=== PATIENT | male | born 1965 | race Two or more races ===

== ENCOUNTER 2018-12-20 22:03 | Emergency (ER) | payer MEDICARE, OTHER ==
[~2018-12-20] VITALS: Ht 165.1 cm; Wt 80.3 kg
[~2018-12-20 22:03] MED LIST: ALPRAZOLAM1 MG ORAL; ASPIRIN81 M3 PO; AZITHROMYCIN250 MG ORAL; BENTYL10 MG ORAL; CIPRO500 MG/5 M PO; CLORAZEPATE DI7.5 MG PO; CYCLOBENZAPRINE10 MG ORAL; KEFLEX500 MG ORAL; KLONOPIN1 MG ORAL; LEVAQUIN750 MG ORAL; LISINOPRIL10 MG ORAL; MACROBID100 MG ORAL; MEDROL DOSEPAK4 MG ORAL; NITROFURANTOIN100 M2 ORAL; NORCO 10-325 T1 EACH ORAL; NORCO 10-325 T1 EACH PO; NORCO 10/3251 EA ORAL; NORCO 5-325 TA1 EACH ORAL; OMEPRAZOLE40 M1 ORAL; ONDANSETRON ODT4 MG ORAL; PAMELOR25 MG ORAL; PAXIL CR12.5 MG ORAL; PROMETHAZINE-D118 ML ORAL; ROBAXIN-750750 MG PO; SIMVASTATIN40 MG ORAL; TESTOSTERO200 MG/1 M IM; TYLENOL EXTRA500 MG ORAL; ZANTAC150 MG ORAL
[2018-12-20] MEDS ORDERED: LEVAQUIN500 MG ORAL (22:30)
[2018-12-20] MEDS ORDERED: cefTRIAXone 1 GM in NS 55 ML IVPB ONE (22:30)
--- NOTE | 2018-12-20 22:31 | Emergency Room Report ---
History of Present Illness General Chief Complaint: To Be Triaged Source: Patient Present Illness HPI This is a 53-year-old male who is paraplegic from the waist down. He has to self catheterize himself. He presents with chief complaint of dysuria. He thinks that he has a tract infection. He had this in the past. He takes Macrobid at night daily. He said is not helping. Said he cannot take Bactrim because of resistant profile. Usually takes Levaquin or Rocephin. Has some mild left flank tenderness. No nausea no vomiting. No fever chills. Similar symptom in the past. He said this been ongoing for about a month. Allergies: Coded Allergies: No Known Allergies (Verified , 07/21/11) Patient History Past Medical History: see triage record, old chart reviewed Past Surgical History: other Pertinent Family History: none Social History: Denies: smoking Immunizations: other Reviewed Nursing Documentation: PMH: Agreed; PSxH: Agreed Nursing Documentation-PMH Hx Hypertension: Yes Hx Cancer: No Hx Gastrointestinal Problems: Yes Hx Neurological Problems: Yes - PARAPLEGIA Hx Paralysis: Yes - B/L LOWER EXTREMITIES Hx Spinal Cord Injury: Yes - T9-T10 Hx Neurologic Surgery: Yes Review of Systems Eye: Denies: eye pain, blurred vision ENT: Denies: ear pain, nose congestion, throat swelling Respiratory: Denies: cough, shortness of breath Cardiovascular: Denies: chest pain, palpitations Gastrointestinal: Denies: abdominal pain, diarrhea, nausea, vomiting Genitourinary: Reports: dysuria Musculoskeletal: Denies: back pain, joint pain Skin: Denies: rash Neurological: Denies: headache, numbness Endocrine: Denies: increased thirst, increased urine Hematologic/Lymphatic: Denies: easy bruising All Other Systems: negative except mentioned in HPI Physical Exam Vitals with high blood pressure Sp02 EP Interpretation: reviewed, normal General Appearance: well appearing, no apparent distress, alert Head: normocephalic, atraumatic Eyes: bilateral eye PERRL, bilateral eye EOMI ENT: hearing grossly normal, normal pharynx Neck: full range of motion, supple, no meningismus Respiratory: chest non-tender, lungs clear, normal breath sounds Cardiovascular #1: regular rate, rhythm, no murmur Gastrointestinal: normal bowel sounds, non tender, no mass, no organomegaly, no bruit, non-distended Musculoskeletal: back normal Neurologic: alert, oriented x3 Psychiatric: mood/affect normal Medical Decision Making Diagnostic Impression: Primary Impression: UTI (urinary tract infection) Qualified Codes: N30.00 - Acute cystitis without hematuria ER Course Patient with dysuria. He states symptoms consistent with his previous UTI. Urine culture sent. He grew out E. coli in the past. We will put him on Levaquin after dose of Rocephin here. Culture sent. Any sepsis, pyelonephritis or systemic disease. Status: improved Disposition: HOME, SELF-CARE Condition: Stable Scripts Levofloxacin* (LEVAQUIN*) 500 Mg Tablet 500 MG ORAL DAILY, #7 TAB Prov: Cb Taylor MD 12/20/18 Additional Instructions: Follow-up with your doctor in 7 days. Urine culture sent but wont be back for 3 to 4 days. Return if symptoms worsen. Cb Taylor MD Dec 20, 2018 22:31
[2018-12-20 22:35] VITALS: BP 177/103
[2018-12-20 23:30] VITALS: BP 177/103
[2018-12-20] MEDS ORDERED: HYDROcodone/Acetamin 5/325 tab ORAL ONE (23:30)
--- NOTE | 2018-12-20 23:30 | NUR ---
ER DISCHARGE NOTE: Patient is cleared to be discharged per ERMD, pt is aox4, on room air, with stable vital signs. pt was given dc and prescription instructions, pt was able to verbalize understanding, pt id band and iv site removed without complications. pt is able to ambulate with steady gait. pt took all belongings.
--- NOTE | 2018-12-20 23:46 | NUR ---
ED Nurse Note: Patient stated "I think i have an UTI" Pt has been on multiple antibiotics but states he is resistant. States he is taking macrobid but not effective. AAO x4, VSS at this time.
== END 2018-12-20 23:30 | disposition home or self-care (01) ==
LOC: EMR 22:30
DX: N30.00 Acute cystitis without hematuria (principal); I10 Essential (primary) hypertension; G82.20 Paraplegia, unspecified
CPT/HCPCS: 87086; 96365; 99284; J0696

== ENCOUNTER 2019-05-14 21:04 | Emergency (ER) | payer MEDICARE ==
[~2019-05-14] VITALS: Ht 167.6 cm; Wt 83.9 kg
[~2019-05-14 21:04] MED LIST changes: +LEVAQUIN500 MG ORAL
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
[2019-05-14 21:46] VITALS: BP 163/99
--- NOTE | 2019-05-14 21:46 | NUR ---
ER Nurse Note: Pt arrived by wheelchair c/o lower back pain, painful urination and diarhea for three months. Pt stated he self caths and has been feeling discomfort for months. Pt stated he has not been moving like he was used to and caused more pressure on is lower body. Pt stated 9/10 pain on lower back. Pt VSS, no signs of distress. Will continue to [facility].
[2019-05-14 21:50] LABS: BASOPHILS % (AUTO) 1.2 % (0.0-2.0); EOSINOPHILS % (AUTO) 1.2 % (0.0-3.0); HEMATOCRIT 50.7 % (42.0-52.0); HEMOGLOBIN 17.2 G/DL (14.2-18.0); LYMPHOCYTES % (AUTO) 24.4 % (20.0-45.0); MEAN CORPUSCULAR VOLUME 88 FL (80-99); MONOCYTES % (AUTO) 6.5 % (1.0-10.0); NEUTROPHILS % (AUTO) 66.6 % (45.0-75.0); PLATELET COUNT 304 K/UL (150-450); RED BLOOD COUNT 5.76 M/UL (4.70-6.10); RED CELL DISTRIBUTION WIDTH 18.4 % (11.6-14.8); WHITE BLOOD COUNT 9.8 K/UL (4.8-10.8)
[2019-05-14 22:01] LABS: ANION GAP 15 mmol/L (5-15); BLOOD UREA NITROGEN 17 mg/dL (7-18); CARBON DIOXIDE 24 MMOL/L (21-32); CHLORIDE 104 MMOL/L (98-107); CREATININE 0.6 MG/DL (0.55-1.30); POTASSIUM 3.9 MMOL/L (3.5-5.1); SODIUM 143 MMOL/L (136-145)
[2019-05-14 22:05] LABS: ALANINE AMINOTRANSFERASE 64 U/L (12-78); ALBUMIN 4.1 G/DL (3.4-5.0); ALBUMIN/GLOBULIN RATIO 1.1 (1.0-2.7); ALKALINE PHOSPHATASE 75 U/L (46-116); ASPARTATE AMINO TRANSFERASE 33 U/L (15-37); BILIRUBIN,TOTAL 0.5 MG/DL (0.2-1.0)
--- NOTE | 2019-05-14 22:10 | NUR ---
ER Nurse Note: All orders completed per ERMD orders. Pt provided urine via self cath. IV established on RT AC, patent and infusing fluids. CT taken; awaiting results. All safety measures met; will continue to [facility].
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
[2019-05-14 22:29] LABS: BILIRUBIN, URINE NEGATIVE (NEGATIVE); COLOR,URINE AMBER; GLUCOSE, URINE (UA) NEGATIVE (NEGATIVE); KETONES,URINE NEGATIVE (NEGATIVE); LEUKOCYTE ESTERASE ,URINE 1+ (NEGATIVE); NITRITE,URINE POSITIVE (NEGATIVE); PH,URINE 5 (4.5-8.0); PROTEIN,URINE 1+ (NEGATIVE); UROBILINOGEN,URINE 1 MG/DL (0.0-1.0)
[2019-05-14 22:31] LABS: APPEARANCE,URINE SLIGHTLY CLOUDY
[2019-05-14] MEDS ORDERED: LOMOTIL TABLET1 EACH ORAL (22:44)
[2019-05-14] MEDS ORDERED: IBUPROFEN600 MG ORAL (22:44)
[2019-05-14] MEDS ORDERED: LEVAQUIN500 MG ORAL (22:44)
[2019-05-14] MEDS ORDERED: Ketorolac 30mg Inj IV ONE (22:45)
[2019-05-14] MEDS ORDERED: Morphine Sulfate 4mg/ml Inj (IV USE ONLY) IVP ONE (22:45)
[2019-05-14] MEDS ORDERED: cefTRIAXone 1 GM in NS 55 ML IVPB ONE (22:45)
[2019-05-14 23:20] VITALS: BP 146/86
--- NOTE | 2019-05-14 23:20 | NUR ---
ER DISCHARGE NOTE: All orders completed per ERMD orders. Patient is cleared to be discharged per ERMD. Pt is aox4, on room air, with stable vital signs. Pt was given dc and prescription instructions. Pt was able to verbalize understanding. Instructed pt to follow up with primary care physican within one week for follow up care. Pt ID band and IV site removed without complications. Pt left with wheelchair and took all belongings.
== END 2019-05-14 23:20 | disposition home or self-care (01) ==
LOC: EMR 22:05
DX: N30.00 Acute cystitis without hematuria (principal); R10.84 Generalized abdominal pain; M54.5 Low back pain; R19.7 Diarrhea, unspecified; I10 Essential (primary) hypertension; G82.20 Paraplegia, unspecified
CPT/HCPCS: 36415; 74176; 80053; 81003; 83690; 85025; 87086; 87181; 96361; 96365; 96375; 99284; J0696; J2270; J7030

== ENCOUNTER 2019-08-15 21:26 | Emergency (ER) | payer MEDICARE ==
[~2019-08-15] VITALS: Ht 165.1 cm; Wt 88.5 kg
[~2019-08-15 21:26] MED LIST changes: +IBUPROFEN600 MG ORAL; +LOMOTIL TABLET1 EACH ORAL
[2019-08-15] MEDS ORDERED: LEXAPRO10 MG ORAL (22:06)
[2019-08-15] MEDS ORDERED: NITROFURANTOIN100 M2 ORAL (22:06)
[2019-08-15] MEDS ORDERED: ALPRAZOLAM1 MG ORAL (22:06)
[2019-08-15] MEDS ORDERED: ATENOLOL25 MG ORAL (22:06)
[2019-08-15 22:19] VITALS: BP 153/90
[2019-08-15] MEDS ORDERED: Omnipaque-300 100ml vial INJ PRN (22:45)
[2019-08-15] MEDS ORDERED: Dicyclomine HCl 10mg/5ml oral soln ORAL ONE (22:45)
--- NOTE | 2019-08-15 22:45 | Emergency Room Report ---
History of Present Illness General Chief Complaint: Abdominal Pain Source: Patient Present Illness HPI Patient is a 53-year-old male presents after increased right-sided abdominal pain. Patient reports having increased diarrhea with dark stool for the past 3 weeks. Denies any alcohol use. Reports taking NSAIDs for pain regularly. States that he had prior history of T9-T10 paraplegia and has diminished sensation to the left side of his abdomen. Reports having increased tarry stools. Increased abdominal distention and bloating. Does not denies any prior appendiceal surgery. Patient states he intermittently self caths and has currently had a urinary tract infection. He is currently taking Macrobid and normally takes Macrobid for urinary suppression. Allergies: Coded Allergies: No Known Allergies (Verified , 07/21/11) COVID-19 Screening Contact w/high risk pt: No Recent Travel to affected area: No Experienced COVID-19 symptoms?: Yes COVID-19 symptoms experienced: Cough COVID-19 Testing performed AMBULANCE PARAMEDIC: No Patient History Past Medical History: see triage record Reviewed Nursing Documentation: PMH: Agreed; PSxH: Agreed Nursing Documentation-PMH Hx Hypertension: Yes Hx Cancer: No Hx Gastrointestinal Problems: Yes Hx Neurological Problems: Yes - PARAPLEGIA Hx Paralysis: Yes - B/L LOWER EXTREMITIES Hx Spinal Cord Injury: Yes - T9-T10 Hx Neurologic Surgery: Yes Review of Systems All Other Systems: negative except mentioned in HPI Physical Exam Vital Signs Date Time Temp Pulse Resp B/P (MAP) Pulse Ox O2 Delivery O2 Flow Rate FiO2 08/15/19 21:34 98.8 127 20 153/90 (111) 97 Room Air Sp02 EP Interpretation: reviewed, normal General Appearance: normal inspection, well appearing, no apparent distress, alert, GCS 15 Head: atraumatic ENT: normal ENT inspection, hearing grossly normal, normal voice Neck: normal inspection, full range of motion, supple, no bony tend Respiratory: normal inspection, lungs clear, normal breath sounds, no respiratory distress, no retraction, no wheezing Cardiovascular #1: regular rate, rhythm, no edema Gastrointestinal: normal inspection, normal bowel sounds, non tender, soft, no guarding, no hernia Genitourinary: no CVA tenderness Musculoskeletal: normal inspection, back normal Neurologic: alert, responsive, speech normal, other - bilateral lower extremity weakness Psychiatric: normal inspection, judgement/insight normal, mood/affect normal Skin: no rash Medical Decision Making Diagnostic Impression: Primary Impression: Abdominal pain ER Course Patient presented for abdominal pain. Differential diagnoses included ischemic bowel, appendicitis, perforated viscus, abdominal aortic aneurysm, inferior myocardial infarction, viral gastroenteritis among others.Because patient's complexity imaging studies, and laboratory testing ordered. Laboratory testing showed normal white blood count,. Electrolytes normal Lipase was normal White blood count was CT of the abdomen pelvis showed: CT imaging showed some evidence of fecal impaction. Does not appear to have any evidence of bowel obstruction. Urinalysis did not show any evidence of definite urinary infection patient is currently taking Macrobid. He appears to be stable for close outpatient follow- up. He was advised to follow-up with his primary care physician for GI referral. He was advised to return if worse. Patient appears to be stable for close outpatient follow up. Labs Test 08/15/19 22:14 08/15/19 22:55 White Blood Count 7.6 K/UL (4.8-10.8) Red Blood Count 5.43 M/UL (4.70-6.10) Hemoglobin 16.8 G/DL (14.2-18.0) Hematocrit 49.2 % (42.0-52.0) Mean Corpuscular Volume 91 FL (80-99) Mean Corpuscular Hemoglobin 31.0 PG (27.0-31.0) Mean Corpuscular Hemoglobin Concent 34.1 G/DL (32.0-36.0) Red Cell Distribution Width 11.9 % (11.6-14.8) Platelet Count 324 K/UL (150-450) Mean Platelet Volume 6.6 FL (6.5-10.1) Neutrophils (%) (Auto) 55.4 % (45.0-75.0) Lymphocytes (%) (Auto) 34.3 % (20.0-45.0) Monocytes (%) (Auto) 8.1 % (1.0-10.0) Eosinophils (%) (Auto) 1.3 % (0.0-3.0) Basophils (%) (Auto) 0.9 % (0.0-2.0) Sodium Level 140 MMOL/L (136-145) Potassium Level 3.7 MMOL/L (3.5-5.1) Chloride Level 104 MMOL/L (98-107) Carbon Dioxide Level 28 MMOL/L (21-32) Anion Gap 9 mmol/L (5-15) Blood Urea Nitrogen 10 mg/dL (7-18) Creatinine 0.7 MG/DL (0.55-1.30) Estimat Glomerular Filtration Rate > 60 mL/min (>60) Glucose Level 110 MG/DL (74-106) Calcium Level 8.7 MG/DL (8.5-10.1) Total Bilirubin 0.3 MG/DL (0.2-1.0) Aspartate Amino Transf (AST/SGOT) 19 U/L (15-37) Alanine Aminotransferase (ALT/SGPT) 38 U/L (12-78) Alkaline Phosphatase 71 U/L (46-116) Total Protein 7.9 G/DL (6.4-8.2) Albumin 3.9 G/DL (3.4-5.0) Globulin 4.0 g/dL Albumin/Globulin Ratio 1.0 (1.0-2.7) Lipase 121 U/L (73-393) Urine Color Pale yellow Urine Appearance Clear Urine pH 7 (4.5-8.0) Urine Specific [place] 1.010 (1.005-1.035) Urine Protein Negative (NEGATIVE) Urine Glucose (UA) Negative (NEGATIVE) Urine Ketones Negative (NEGATIVE) Urine Blood 1+ (NEGATIVE) Urine Nitrite Negative (NEGATIVE) Urine Bilirubin Negative (NEGATIVE) Urine Urobilinogen Normal MG/DL (0.0-1.0) Urine Leukocyte Esterase 1+ (NEGATIVE) Urine RBC 0-2 /HPF (0 - 0) Urine WBC 0-2 /HPF (0 - 0) Urine Squamous Epithelial Cells None /LPF (NONE/OCC) Urine Bacteria None /HPF (NONE) Last Vital Signs Date Time Temp Pulse Resp B/P (MAP) Pulse Ox O2 Delivery O2 Flow Rate FiO2 08/15/19 22:19 127 20 Room Air 08/15/19 22:19 98.8 153/90 97 Status: improved Disposition: HOME, SELF-CARE Condition: Stable Scripts Lactulose (LACTULOSE*) 20 Gm/30 Ml Solution 30 ML ORAL THREE TIMES A DAY for constipation, #60 ML 0 Refills Prov: Jaylon Salamanca MD 08/16/19 [facility]: [facility],REFERRING (PCP) Jaylon Salamanca MD August 15, 2019 22:45
[2019-08-15 23:07] LABS: BASOPHILS % (AUTO) 0.9 % (0.0-2.0); EOSINOPHILS % (AUTO) 1.3 % (0.0-3.0); HEMATOCRIT 49.2 % (42.0-52.0); HEMOGLOBIN 16.8 G/DL (14.2-18.0); LYMPHOCYTES % (AUTO) 34.3 % (20.0-45.0); MEAN CORPUSCULAR VOLUME 91 FL (80-99); MONOCYTES % (AUTO) 8.1 % (1.0-10.0); NEUTROPHILS % (AUTO) 55.4 % (45.0-75.0); PLATELET COUNT 324 K/UL (150-450); RED BLOOD COUNT 5.43 M/UL (4.70-6.10); RED CELL DISTRIBUTION WIDTH 11.9 % (11.6-14.8); WHITE BLOOD COUNT 7.6 K/UL (4.8-10.8)
[2019-08-15 23:10] LABS: APPEARANCE,URINE CLEAR; BILIRUBIN, URINE NEGATIVE (NEGATIVE); COLOR,URINE PALE YELLOW; GLUCOSE, URINE (UA) NEGATIVE (NEGATIVE); KETONES,URINE NEGATIVE (NEGATIVE); LEUKOCYTE ESTERASE ,URINE 1+ (NEGATIVE); NITRITE,URINE NEGATIVE (NEGATIVE); PH,URINE 7 (4.5-8.0); PROTEIN,URINE NEGATIVE (NEGATIVE); UROBILINOGEN,URINE NORMAL MG/DL (0.0-1.0)
[2019-08-15 23:20] LABS: ANION GAP 9 mmol/L (5-15); BLOOD UREA NITROGEN 10 mg/dL (7-18); CALCIUM 8.7 MG/DL (8.5-10.1); CARBON DIOXIDE 28 MMOL/L (21-32); CHLORIDE 104 MMOL/L (98-107); CREATININE 0.7 MG/DL (0.55-1.30); POTASSIUM 3.7 MMOL/L (3.5-5.1); SODIUM 140 MMOL/L (136-145)
[2019-08-15 23:25] LABS: ALANINE AMINOTRANSFERASE 38 U/L (12-78); ALBUMIN 3.9 G/DL (3.4-5.0); ALKALINE PHOSPHATASE 71 U/L (46-116); ASPARTATE AMINO TRANSFERASE 19 U/L (15-37); BILIRUBIN,TOTAL 0.3 MG/DL (0.2-1.0)
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
[2019-08-16] MEDS ORDERED: Ketorolac 30mg Inj IV ONE (01:00)
[2019-08-16] MEDS ORDERED: LACTULOSE20 GM/301 ORAL (01:00)
[2019-08-16] MEDS ORDERED: OMEPRAZOLE20 M2 ORAL (01:03)
[2019-08-16 01:15] VITALS: BP 153/90
[2019-08-16] MEDS ORDERED: Morphine Sulfate 4mg/ml Inj (IV USE ONLY) IVP ONE (01:15)
== END 2019-08-16 01:15 | disposition home or self-care (01) ==
LOC: EMR 21:56
DX: R10.9 Unspecified abdominal pain (principal); R19.7 Diarrhea, unspecified; R05 Cough; I10 Essential (primary) hypertension; G82.20 Paraplegia, unspecified; R14.0 Abdominal distension (gaseous); K59.00 Constipation, unspecified; M25.452 Effusion, left hip; M25.451 Effusion, right hip
CPT/HCPCS: 36415; 74177; 80053; 81003; 83690; 85025; 96374; 96375; 99284; J1885; J2270; J2405; Q9967; S0028

== ENCOUNTER 2019-09-11 21:54 | Emergency (ER) | payer MEDICARE ==
[~2019-09-11] VITALS: Ht 167.6 cm; Wt 88.5 kg
[~2019-09-11 21:54] MED LIST changes: +ATENOLOL25 MG ORAL; +LACTULOSE20 GM/301 ORAL; +LEXAPRO10 MG ORAL; +OMEPRAZOLE20 M2 ORAL
[2019-09-11 22:20] VITALS: BP 149/72
--- NOTE | 2019-09-11 22:20 | NUR ---
ED Nurse Note: Wheelchair to ED c/o severe lower back pain / x 5 days. Patient reports frequent reoccurrance. Patient able to transfer self from wheelchair to bed without incident. Attached to monitor; Tachycardic 103's; ERMD aware. Patient provided urine sample. IV access established. Blood and urine collected; sent down to lab.
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
[2019-09-11] MEDS ORDERED: Ketorolac 30mg Inj IV ONE (22:30)
[2019-09-11] MEDS ORDERED: Morphine Sulfate 4mg/ml Inj (IV USE ONLY) IVP ONE (22:30)
[2019-09-11 22:35] LABS: BILIRUBIN, URINE NEGATIVE (NEGATIVE); COLOR,URINE YELLOW; GLUCOSE, URINE (UA) NEGATIVE (NEGATIVE); KETONES,URINE NEGATIVE (NEGATIVE); LEUKOCYTE ESTERASE ,URINE 1+ (NEGATIVE); NITRITE,URINE POSITIVE (NEGATIVE); PH,URINE 6 (4.5-8.0); PROTEIN,URINE NEGATIVE (NEGATIVE); UROBILINOGEN,URINE 1 MG/DL (0.0-1.0)
--- NOTE | 2019-09-11 22:35 | NUR ---
ED Nurse Note: Medicated patient as ordered; patient tolerated well. Patient remains in no acute distress.
[2019-09-11 22:40] LABS: APPEARANCE,URINE CLOUDY
[2019-09-11] MEDS ORDERED: LEVAQUIN500 MG ORAL (22:43)
[2019-09-11 22:50] LABS: BASOPHILS % (AUTO) 1.4 % (0.0-2.0); EOSINOPHILS % (AUTO) 0.4 % (0.0-3.0); HEMATOCRIT 54.2 % (42.0-52.0); HEMOGLOBIN 17.1 G/DL (14.2-18.0); LYMPHOCYTES % (AUTO) 30.2 % (20.0-45.0); MEAN CORPUSCULAR VOLUME 100 FL (80-99); MONOCYTES % (AUTO) 4.9 % (1.0-10.0); NEUTROPHILS % (AUTO) 63.1 % (45.0-75.0); PLATELET COUNT 344 K/UL (150-450); RED BLOOD COUNT 5.45 M/UL (4.70-6.10); RED CELL DISTRIBUTION WIDTH 13.4 % (11.6-14.8); WHITE BLOOD COUNT 8.9 K/UL (4.8-10.8)
[2019-09-12] MEDS ORDERED: Morphine Sulfate 4mg/ml Inj (IV USE ONLY) IVP ONE
[2019-09-12 00:07] VITALS: BP 149/72
== END 2019-09-12 00:05 | disposition home or self-care (01) ==
LOC: EMR 22:09
DX: M54.5 Low back pain (principal); G89.29 Other chronic pain; N30.00 Acute cystitis without hematuria; Z99.3 Dependence on wheelchair; I10 Essential (primary) hypertension; G82.20 Paraplegia, unspecified; G83.9 Paralytic syndrome, unspecified
CPT/HCPCS: 36415; 81003; 85025; 87086; 87181; 96361; 96374; 96375; 96376; 99284; J1885; J2270; J7030

== ENCOUNTER 2019-10-21 21:05 | Emergency (ER) | payer MEDICARE ==
[~2019-10-21] VITALS: Ht 167.6 cm; Wt 88.5 kg
[2019-10-21 21:30] VITALS: BP 130/77
[2019-10-21] MEDS ORDERED: Hydromorphone 0.5mg/0.5ml inj IVP ONE (21:30)
--- NOTE | 2019-10-21 21:30 | NUR ---
ED Nurse Note: IV access established. blood and urine collected; sent down to lab.
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
--- NOTE | 2019-10-21 21:45 | NUR ---
ED Nurse Note: pt down to imaging with radiology via gurney.
[2019-10-21 21:56] LABS: BASOPHILS % (AUTO) 1.1 % (0.0-2.0); EOSINOPHILS % (AUTO) 0.9 % (0.0-3.0); HEMATOCRIT 50.2 % (42.0-52.0); HEMOGLOBIN 16.4 G/DL (14.2-18.0); LYMPHOCYTES % (AUTO) 18.2 % (20.0-45.0); MEAN CORPUSCULAR VOLUME 96 FL (80-99); MONOCYTES % (AUTO) 8.8 % (1.0-10.0); PLATELET COUNT 313 K/UL (150-450); RED BLOOD COUNT 5.24 M/UL (4.70-6.10); RED CELL DISTRIBUTION WIDTH 13.5 % (11.6-14.8); WHITE BLOOD COUNT 10.1 K/UL (4.8-10.8)
[2019-10-21 21:58] LABS: APPEARANCE,URINE SLIGHTLY CLOUDY; BILIRUBIN, URINE NEGATIVE (NEGATIVE); GLUCOSE, URINE (UA) NEGATIVE (NEGATIVE); KETONES,URINE 1+ (NEGATIVE); LEUKOCYTE ESTERASE ,URINE NEGATIVE (NEGATIVE); NITRITE,URINE NEGATIVE (NEGATIVE); PH,URINE 7 (4.5-8.0); PROTEIN,URINE NEGATIVE (NEGATIVE); UROBILINOGEN,URINE 4 MG/DL (0.0-1.0)
[2019-10-21 22:00] LABS: COLOR,URINE YELLOW
[2019-10-21 22:05] LABS: ANION GAP 7 mmol/L (5-15); BLOOD UREA NITROGEN 11 mg/dL (7-18); CALCIUM 8.7 MG/DL (8.5-10.1); CARBON DIOXIDE 29 MMOL/L (21-32); CHLORIDE 101 MMOL/L (98-107); CREATININE 0.7 MG/DL (0.55-1.30); POTASSIUM 3.7 MMOL/L (3.5-5.1); SODIUM 137 MMOL/L (136-145)
[2019-10-21 22:16] LABS: ALANINE AMINOTRANSFERASE 35 U/L (12-78); ALBUMIN 3.9 G/DL (3.4-5.0); ALKALINE PHOSPHATASE 93 U/L (46-116); ASPARTATE AMINO TRANSFERASE 20 U/L (15-37); BILIRUBIN,TOTAL 0.4 MG/DL (0.2-1.0); CREATINE KINASE 172 U/L (26-308); PHOSPHORUS 1.7 MG/DL (2.5-4.9)
--- NOTE | 2019-10-21 22:25 | Diagnostic Imaging Report ---
EXAM: XR Left Tibia and Fibula, 2 Views CLINICAL HISTORY: FALL TECHNIQUE: Frontal and lateral views of the left tibia and fibula. COMPARISON: No relevant prior studies available. FINDINGS: Bones/joints: Spiral fracture distal tibia. Trace knee effusion. Soft tissues: Soft tissue swelling. IMPRESSION: Spiral fracture distal tibia.
--- NOTE | 2019-10-21 22:29 | Diagnostic Imaging Report ---
EXAM: XR Chest, 1 View CLINICAL HISTORY: FALL TECHNIQUE: Frontal view of the chest. COMPARISON: No relevant prior studies available. FINDINGS: Lungs: No consolidation. Pleural space: Unremarkable. No pneumothorax. Heart: Unremarkable. No cardiomegaly. Mediastinum: Unremarkable. Bones/joints: No acute fracture. IMPRESSION: No acute cardiopulmonary disease.
[2019-10-21] MEDS ORDERED: HYDROmorphone 1mg/ml Carpuject IVP ONE (22:30)
--- NOTE | 2019-10-21 22:30 | NUR ---
ED Nurse Note: pt back from imaging. reattached to [facility]. presents in no acute distress. medicated patient. ertech at bedside for splint application.
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
[2019-10-21] MEDS ORDERED: Omnipaque 350 100ml vial INJ PRN (23:00)
[2019-10-21] MEDS ORDERED: LORazepam Inj 2mg/ml 1ml IV ONE (23:00)
--- NOTE | 2019-10-22 00:04 | Diagnostic Imaging Report ---
EXAM: CT Angiography Chest With Intravenous Contrast CLINICAL HISTORY: CP TECHNIQUE: Axial computed tomographic angiography images of the chest with intravenous contrast. CTDI is 3 7.30 mGy and DLP is 1457.1 mGy-cm. One or more of the following dose reduction techniques were used: automated exposure control, adjustment of the mA and/or kV according to patient size, use of iterative reconstruction technique. MIP reconstructed images were created and reviewed. COMPARISON: 06/09/14 FINDINGS: Limitations: Timing of the IV contrast bolus. Pulmonary arteries: No central pulmonary embolus. Aorta: No acute findings. No thoracic aortic aneurysm. Lungs: Mild atelectasis or sc trace gas seen in the gallbladder. No suspicious pulmonary nodule. Pleural space: No significant abnormality. No significant effusion. No pneumothorax. Heart: No significant abnormality. No cardiomegaly. No significant pericardial effusion. Bones/joints: No acute osseous abnormality. Stable deformity of the T12 vertebral body. Soft tissues: No significant abnormality. Lymph nodes: No significant abnormality. No enlarged lymph nodes. Gallbladder and bile ducts: Similar atrophy of the left hepatic lobe and mild intrahepatic biliary dilatation. Again seen is pneumobilia. IMPRESSION: No acute CT findings in the visualized arteries of the chest.
[2019-10-22 00:10] VITALS: BP 110/68
[2019-10-22] MEDS ORDERED: HYDROCODON-ACE1 EA16 ORAL (00:19)
[2019-10-22 00:28] VITALS: BP 110/68
--- NOTE | 2019-10-22 00:28 | NUR ---
ER DISCHARGE NOTE: Patient is cleared to be discharged per ERMD, pt is aox4, on room air, with stable vital signs. pt was given dc and prescription instructions, pt was able to verbalize understanding, pt id band and iv site removed without complications. pt is able to self transfer to wheelchair without incident. left dept with all belongings.
== END 2019-10-22 00:29 | disposition home or self-care (01) ==
LOC: EMR 21:36
DX: S82.245A Nondisplaced spiral fracture of shaft of left tibia, initial encounter for closed fracture (principal); I10 Essential (primary) hypertension; R00.0 Tachycardia, unspecified; M54.5 Low back pain; G82.20 Paraplegia, unspecified; F41.9 Anxiety disorder, unspecified; M62.50 Muscle wasting and atrophy, not elsewhere classified, unspecified site; W05.0XXA Fall from non-moving wheelchair, initial encounter; Y92.9 Unspecified place or not applicable
CPT/HCPCS: 29515; 36415; 71045; 71275; 72131; 73590; 80053; 80307; 81003; 82550; 83605; 83735; 83880; 84100; 84484; 85025; 85610; 85730; 87040; 93005; 96361; 96374; 96375; 96376; 99284; J1170; Q9967

== ENCOUNTER 2019-10-23 21:47 | Emergency (ER) | payer MEDICARE ==
[~2019-10-23] VITALS: Ht 142.2 cm; Wt 86.2 kg
[~2019-10-23 21:47] MED LIST changes: +HYDROCODON-ACE1 EA16 ORAL
[2019-10-23 22:01] VITALS: BP 124/92
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
--- NOTE | 2019-10-23 22:15 | NUR ---
ED Nurse Note: ERMD at bedside
[2019-10-23] MEDS ORDERED: HYDROmorphone 1mg/ml Carpuject IM ONE (22:30)
[2019-10-23] MEDS ORDERED: Ketorolac 60mg Inj IM ONE (22:30)
--- NOTE | 2019-10-23 22:30 | NUR ---
ED Nurse Note: All medications administered, pt tolerated well no ss of distress noted. will continue to monitor.
--- NOTE | 2019-10-23 22:32 | Emergency Room Report ---
History of Present Illness General Chief Complaint: Pain Source: Patient Present Illness HPI Patient is a 54-year-old male presents for increased pain to his low back. Had recent fall from his wheelchair. Had recently been diagnosed with a spiral fracture to his left tibia. Had been placed in a splint. Had a chronically self caths due to paraplegia. Denies any fever. Had not been vomiting. Is complete paraplegic and denies any new weakness. Denies any abdominal discomfort.Patient had recent imaging studies which showed compression fracture T12 which is stable. There is no recent new trauma. He reports taking Ezel for pain. 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 Patient History Past Medical History: see triage record Past Surgical History: other - Surgeries for trauma Reviewed Nursing Documentation: PMH: Agreed; PSxH: Agreed Nursing Documentation-PMH Past Medical History: No History, Except For Hx Hypertension: Yes Hx Cancer: No Hx Gastrointestinal Problems: Yes Hx Neurological Problems: Yes - PARAPLEGIA Hx Paralysis: Yes - B/L LOWER EXTREMITIES Hx Spinal Cord Injury: Yes - 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 Hx Neurologic Surgery: Yes Review of Systems All Other Systems: negative except mentioned in HPI Physical Exam Sp02 EP Interpretation: reviewed, normal General Appearance: normal inspection, well appearing, no apparent distress, alert, GCS 15, obese Head: atraumatic ENT: normal ENT inspection, hearing grossly normal, normal voice Neck: normal inspection, full range of motion, supple, no bony tend Respiratory: normal inspection, lungs clear, normal breath sounds, no respiratory distress, no retraction, no wheezing Cardiovascular #1: regular rate, rhythm, no edema Gastrointestinal: normal inspection, normal bowel sounds, non tender, soft, no guarding, no hernia Genitourinary: no CVA tenderness Musculoskeletal: normal inspection, back normal, other - Left lower extremity in splint brisk cap refill, minimal swelling soft compartments Neurologic: alert, responsive, speech normal, normal inspection Psychiatric: normal inspection, judgement/insight normal, mood/affect normal Skin: no rash Medical Decision Making Diagnostic Impression: Primary Impression: chronic back pain Additional Impressions: Tibial fracture Back pain ER Course Patient presented for increased back pain. Differential diagnosis include was not limited to urinary tract infection, chronic back pain exacerbation, among others. Patient has a benign exam and does not appear to require any imaging or laboratory testing at this time. Urinalysis will be sent due to patient's prior history of self cathing. Patient is currently taking antibiotics for urinary suppression. Does not appear to have any evidence of sepsis. Patient was given pain medications due to fracture which was previously diagnosed on last visit. Patient appears to be stable for outpatient management. He was offered further work-up but denies any other complaints. Urinalysis showed no evidence of urinary tract infection. Patient will follow-up with his primary care physician. He is agreeable with discharge plan. This medical record is generated with [employer] band aid machine operator software. There may be some band aid machine operator discrepancies related to use of this software Labs Test 10/23/19 22:44 Urine Color Pale yellow Urine Appearance Clear Urine pH 8 (4.5-8.0) Urine Specific [place] 1.010 (1.005-1.035) Urine Protein Negative (NEGATIVE) Urine Glucose (UA) Negative (NEGATIVE) Urine Ketones Negative (NEGATIVE) Urine Blood Negative (NEGATIVE) Urine Nitrite Negative (NEGATIVE) Urine Bilirubin Negative (NEGATIVE) Urine Urobilinogen 4 MG/DL (0.0-1.0) Urine Leukocyte Esterase Negative (NEGATIVE) Status: improved Disposition: HOME, SELF-CARE Condition: Stable Referrals: [facility],REFERRING (PCP) Jaylon Salamanca MD Oct 23, 2019 22:32
[2019-10-23 23:13] LABS: APPEARANCE,URINE CLEAR; BILIRUBIN, URINE NEGATIVE (NEGATIVE); COLOR,URINE PALE YELLOW; GLUCOSE, URINE (UA) NEGATIVE (NEGATIVE); KETONES,URINE NEGATIVE (NEGATIVE); LEUKOCYTE ESTERASE ,URINE NEGATIVE (NEGATIVE); NITRITE,URINE NEGATIVE (NEGATIVE); PH,URINE 8 (4.5-8.0); PROTEIN,URINE NEGATIVE (NEGATIVE); UROBILINOGEN,URINE 4 MG/DL (0.0-1.0)
[2019-10-23 23:31] VITALS: BP 138/98
[2019-10-23 23:34] VITALS: BP 138/98
--- NOTE | 2019-10-23 23:34 | NUR ---
ER DISCHARGE NOTE: Patient is cleared to be discharged home per ERMD, pt is aox4, 99% on room air, with stable vital signs. pt was given dc and prescription instructions, pt was able to verbalize understanding, pt id band removed. pt is able to utilize wheelchair without assistance. pt took all belongings. pt verbalized understanding of all discharge instructions.
== END 2019-10-23 23:30 | disposition home or self-care (01) ==
LOC: EMR 22:14
DX: M54.5 Low back pain (principal); G89.29 Other chronic pain; S82.242A Displaced spiral fracture of shaft of left tibia, initial encounter for closed fracture; G82.21 Paraplegia, complete; W05.0XXA Fall from non-moving wheelchair, initial encounter; Y92.9 Unspecified place or not applicable; I10 Essential (primary) hypertension
CPT/HCPCS: 81003; 96372; 99283; J1170

== ENCOUNTER 2019-12-10 03:02 | Emergency (ER) | payer MEDICARE ==
[~2019-12-10] VITALS: Ht 167.6 cm; Wt 88.5 kg
[2019-12-10 03:30] VITALS: BP 157/109
[2019-12-10] MEDS ORDERED: Cephalexin 500mg cap ORAL ONE (03:45)
[2019-12-10] MEDS ORDERED: Morphine Sulfate 2mg/ml Inj(IV/IM USE ONLY) IM ONE (03:45)
--- NOTE | 2019-12-10 03:53 | Emergency Room Report ---
History of Present Illness General Chief Complaint: Male Urogenital Problems Source: Patient Present Illness HPI Patient is a 54-year-old male presents for increased low back pain. Patient also has prior history of paraplegia and spinal cord injury. Patient reports having increased difficulty with flank pain. Denies any vomiting or diarrhea. Reports having prior history of orthopedic surgery for fracture to his left leg. States that he missed an orthopedic appointment earlier in the day. Denies any fever. Prior history of recurrent urinary tract infections due to self catheterizations. Reports having some burning sensation with urination. He normally is on Macrobid for suppression but had run out of medications. 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 Hx Neurologic Surgery: Yes Review of Systems All Other Systems: negative except mentioned in HPI Physical Exam Vital Signs Date Time Temp Pulse Resp B/P (MAP) Pulse Ox O2 Delivery O2 Flow Rate FiO2 12/10/19 03:20 98.6 123 16 157/109 (125) 98 Room Air Sp02 EP Interpretation: reviewed, normal General Appearance: normal inspection, well appearing, no apparent distress, alert, GCS 15, obese, Chronically Ill Head: atraumatic ENT: normal ENT inspection, hearing grossly normal, normal voice Neck: normal inspection, full range of motion, supple, no bony tend Respiratory: normal inspection, lungs clear, normal breath sounds, no respiratory distress, no retraction, no wheezing Cardiovascular #1: regular rate, rhythm, no edema Gastrointestinal: normal inspection, normal bowel sounds, non tender, soft, no guarding, no hernia Genitourinary: no CVA tenderness Musculoskeletal: normal inspection Neurologic: alert, oriented x3, motor weakness, responsive, speech normal, no rmal inspection Psychiatric: normal inspection, judgement/insight normal, mood/affect normal Medical Decision Making Diagnostic Impression: Primary Impression: Paraplegia Additional Impressions: UTI (urinary tract infection) chronic back pain Visit for wound check ER Course Patient presented for increased dysuria. Differential diagnosis include was not limited to urinary tract infection, sepsis, wound infection among others. Patient laboratory testing was unremarkable. Patient's white blood count appear to be normal. Patient's leg appears to be healing well without evidence of infection. Patient was advised to have francine removed with his orthopedic physician as this does appear to be healing well and does not definitely ready for staple removal at this time. Patient's back pain appears to be chronic and he is had multiple visits for pain in the past. Patient was given IV pain medications. He was advised to follow-up with his orthopedic doctor and primary care physician for recheck. He is to return if worse. Patient appears to be stable for close outpatient follow-up with his physicians. Urinalysis showed no evidence of urinary infection however patient may be having symptoms due to chronic self cathing. Patient is given prescription for oral antibiotics. Labs Test 12/10/19 03:39 White Blood Count 7.3 K/UL (4.8-10.8) Red Blood Count 5.30 M/UL (4.70-6.10) Hemoglobin 15.5 G/DL (14.2-18.0) Hematocrit 47.4 % (42.0-52.0) Mean Corpuscular Volume 89 FL (80-99) Mean Corpuscular Hemoglobin 29.3 PG (27.0-31.0) Mean Corpuscular Hemoglobin Concent 32.7 G/DL (32.0-36.0) Red Cell Distribution Width 12.3 % (11.6-14.8) Platelet Count 420 K/UL (150-450) Mean Platelet Volume 6.5 FL (6.5-10.1) Neutrophils (%) (Auto) 61.4 % (45.0-75.0) Lymphocytes (%) (Auto) 28.7 % (20.0-45.0) Monocytes (%) (Auto) 7.0 % (1.0-10.0) Eosinophils (%) (Auto) 0.7 % (0.0-3.0) Basophils (%) (Auto) 2.1 % (0.0-2.0) Sodium Level 141 MMOL/L (136-145) Potassium Level 3.6 MMOL/L (3.5-5.1) Chloride Level 105 MMOL/L (98-107) Carbon Dioxide Level 25 MMOL/L (21-32) Anion Gap 11 mmol/L (5-15) Blood Urea Nitrogen 8 mg/dL (7-18) Creatinine 0.6 MG/DL (0.55-1.30) Estimat Glomerular Filtration Rate > 60 mL/min (>60) Glucose Level 153 MG/DL (74-106) Calcium Level 8.6 MG/DL (8.5-10.1) Total Bilirubin 0.2 MG/DL (0.2-1.0) Aspartate Amino Transf (AST/SGOT) 20 U/L (15-37) Alanine Aminotransferase (ALT/SGPT) 36 U/L (12-78) Alkaline Phosphatase 154 U/L (46-116) Total Protein 7.9 G/DL (6.4-8.2) Albumin 3.7 G/DL (3.4-5.0) Globulin 4.2 g/dL Albumin/Globulin Ratio 0.9 (1.0-2.7) Last Vital Signs Date Time Temp Pulse Resp B/P (MAP) Pulse Ox O2 Delivery O2 Flow Rate FiO2 12/10/19 03:20 98.6 123 16 157/109 (125) 98 Room Air Status: improved Disposition: HOME, SELF-CARE Condition: Stable Scripts Nitrofurantoin Monohyd/M-Cryst* (MACROBID 100 MG*) 100 Mg Capsule 100 MG ORAL EVERY 12 HOURS, #20 CAP Prov: Jaylon Salamanca MD 12/10/19 Referrals: NON PHYSICIAN (PCP) Jaylon Salamanca MD Dec 10, 2019 03:53
[2019-12-10] MEDS ORDERED: cefTRIAXone 1 GM in NS 55 ML IVPB ONE (04:00)
[2019-12-10 04:03] LABS: BASOPHILS % (AUTO) 2.1 % (0.0-2.0); EOSINOPHILS % (AUTO) 0.7 % (0.0-3.0); HEMATOCRIT 47.4 % (42.0-52.0); HEMOGLOBIN 15.5 G/DL (14.2-18.0); LYMPHOCYTES % (AUTO) 28.7 % (20.0-45.0); MEAN CORPUSCULAR VOLUME 89 FL (80-99); NEUTROPHILS % (AUTO) 61.4 % (45.0-75.0); PLATELET COUNT 420 K/UL (150-450); RED CELL DISTRIBUTION WIDTH 12.3 % (11.6-14.8); WHITE BLOOD COUNT 7.3 K/UL (4.8-10.8)
[2019-12-10 04:13] LABS: ANION GAP 11 mmol/L (5-15); BLOOD UREA NITROGEN 8 mg/dL (7-18); CALCIUM 8.6 MG/DL (8.5-10.1); CARBON DIOXIDE 25 MMOL/L (21-32); CHLORIDE 105 MMOL/L (98-107); CREATININE 0.6 MG/DL (0.55-1.30); POTASSIUM 3.6 MMOL/L (3.5-5.1); SODIUM 141 MMOL/L (136-145)
[2019-12-10 04:17] LABS: ALANINE AMINOTRANSFERASE 36 U/L (12-78); ALBUMIN 3.7 G/DL (3.4-5.0); ALBUMIN/GLOBULIN RATIO 0.9 (1.0-2.7); ALKALINE PHOSPHATASE 154 U/L (46-116); ASPARTATE AMINO TRANSFERASE 20 U/L (15-37); BILIRUBIN,TOTAL 0.2 MG/DL (0.2-1.0)
[2019-12-10] MEDS ORDERED: NITROFURANTOIN100 M2 ORAL (04:26)
[2019-12-10 04:51] LABS: APPEARANCE,URINE CLEAR; BILIRUBIN, URINE NEGATIVE (NEGATIVE); GLUCOSE, URINE (UA) NEGATIVE (NEGATIVE); KETONES,URINE NEGATIVE (NEGATIVE); LEUKOCYTE ESTERASE ,URINE NEGATIVE (NEGATIVE); NITRITE,URINE NEGATIVE (NEGATIVE); PH,URINE 7 (4.5-8.0); PROTEIN,URINE NEGATIVE (NEGATIVE); UROBILINOGEN,URINE 1 MG/DL (0.0-1.0)
[2019-12-10 04:52] LABS: COLOR,URINE YELLOW
[2019-12-10 05:00] VITALS: BP 157/109
== END 2019-12-10 05:00 | disposition home or self-care (01) ==
LOC: EMR 03:31
DX: N39.0 Urinary tract infection, site not specified (principal); G82.20 Paraplegia, unspecified; G89.29 Other chronic pain; M54.5 Low back pain; E66.9 Obesity, unspecified; I10 Essential (primary) hypertension; Z68.31 Body mass index [BMI] 31.0-31.9, adult
CPT/HCPCS: 36415; 80053; 81003; 85025; 96365; 96372; 99284; J0696; J2270

== ENCOUNTER 2020-01-11 02:45 | Emergency (ER) | payer MEDICARE ==
[~2020-01-11] VITALS: Ht 167.6 cm; Wt 88.5 kg
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
[2020-01-11] MEDS ORDERED: LORazepam Inj 2mg/ml 1ml IV ONE (03:15)
[2020-01-11] MEDS ORDERED: HYDROmorphone 1mg/ml Carpuject IVP ONE (03:15)
[2020-01-11 03:16] LABS: BASOPHILS % (AUTO) 1.1 % (0.0-2.0); HEMATOCRIT 52.1 % (42.0-52.0); HEMOGLOBIN 16.9 G/DL (14.2-18.0); LYMPHOCYTES % (AUTO) 25.7 % (20.0-45.0); MEAN CORPUSCULAR VOLUME 91 FL (80-99); MONOCYTES % (AUTO) 5.8 % (1.0-10.0); NEUTROPHILS % (AUTO) 65.5 % (45.0-75.0); PLATELET COUNT 359 K/UL (150-450); RED BLOOD COUNT 5.72 M/UL (4.70-6.10); WHITE BLOOD COUNT 9.4 K/UL (4.8-10.8)
[2020-01-11 03:27] LABS: ANION GAP 11 mmol/L (5-15); BLOOD UREA NITROGEN 10 mg/dL (7-18); CALCIUM 8.8 MG/DL (8.5-10.1); CARBON DIOXIDE 26 MMOL/L (21-32); CHLORIDE 101 MMOL/L (98-107); CREATININE 0.8 MG/DL (0.55-1.30); POTASSIUM 3.5 MMOL/L (3.5-5.1); SODIUM 138 MMOL/L (136-145)
[2020-01-11 03:31] LABS: ALANINE AMINOTRANSFERASE 31 U/L (12-78); ALBUMIN 3.9 G/DL (3.4-5.0); ALKALINE PHOSPHATASE 120 U/L (46-116); ASPARTATE AMINO TRANSFERASE 18 U/L (15-37); BILIRUBIN,TOTAL 0.2 MG/DL (0.2-1.0)
[2020-01-11 03:41] VITALS: BP 186/112
[2020-01-11 03:42] LABS: APPEARANCE,URINE CLEAR; BILIRUBIN, URINE NEGATIVE (NEGATIVE); COLOR,URINE PALE YELLOW; GLUCOSE, URINE (UA) NEGATIVE (NEGATIVE); KETONES,URINE NEGATIVE (NEGATIVE); LEUKOCYTE ESTERASE ,URINE NEGATIVE (NEGATIVE); NITRITE,URINE NEGATIVE (NEGATIVE); PH,URINE 7 (4.5-8.0); PROTEIN,URINE NEGATIVE (NEGATIVE); UROBILINOGEN,URINE NORMAL MG/DL (0.0-1.0)
[2020-01-11] MEDS ORDERED: Labetalol 5mg/ml 20ml vial IV ONE ×2 (04:11→04:15)
[2020-01-11] MEDS ORDERED: ATENOLOL50 MG ORAL (04:14)
[2020-01-11 04:59] VITALS: BP 159/110
--- NOTE | 2020-01-11 11:45 | Diagnostic Imaging Report ---
Procedure: XRAY Chest 1v Reason for study: Chest pain. Comparison films: 10/21/2019. FINDINGS: A single one view chest is obtained. Vascularity is normal. The lung gastelum are clear bilaterally. Cardiac and mediastinal silhouette are within normal limits. No significant effusion seen. The bony thorax appear unremarkable. IMPRESSION: NO ACUTE CARDIOPULMONARY DISEASE.
--- NOTE | 2020-01-11 15:27 | Cardiology Report ---
APPROVED REPORT EKG Measurement Heart [id number] <Conclusion> Sinus tachycardia Rightward axis T wave abnormality, consider inferior ischemia Abnormal ECG
== END 2020-01-11 05:19 | disposition home or self-care (01) ==
LOC: EMR 03:05
DX: M54.5 Low back pain (principal); R07.9 Chest pain, unspecified; R00.0 Tachycardia, unspecified; I10 Essential (primary) hypertension; G82.20 Paraplegia, unspecified; G89.29 Other chronic pain; Z87.440 Personal history of urinary (tract) infections; F41.9 Anxiety disorder, unspecified; R05 Cough; R19.7 Diarrhea, unspecified
CPT/HCPCS: 36415; 71045; 80053; 80307; 81001; 84484; 85025; 93005; 96361; 96374; 96375; 99284; J1170; J7030

== ENCOUNTER 2020-01-18 16:56 | Emergency (ER) | payer MEDICARE ==
[~2020-01-18] VITALS: Ht 167.6 cm; Wt 88.5 kg
[~2020-01-18 16:56] MED LIST changes: +ATENOLOL50 MG ORAL
[2020-01-18 17:17] VITALS: BP 127/77
--- NOTE | 2020-01-18 17:25 | Emergency Room Report ---
History of Present Illness General Chief Complaint: Pain Source: Patient Present Illness HPI Patient is a 54-year-old male presents for increased left knee discomfort. Reportedly had fall several weeks ago. Reports having increased swelling to his knee after all of his wheelchair. Had recent visit to [facility] and had been noted to have increased bleeding from area near his kneecap. Patient had attempted to explore the area with his finger. Reports having somewhat improved swelling over time. Denies any fever. Patient has prior history of paraplegia as well as her orthopedic surgery to the left lower extremity for recent fracture Allergies: Coded Allergies: No Known Allergies (Unverified , 01/18/20) COVID-19 Screening Contact w/high risk pt: No Recent Travel to affected area: No Experienced COVID-19 symptoms?: Yes COVID-19 symptoms experienced: Cough COVID-19 Testing performed REPAIRER HELPER: Yes - 01/17/20 COVID-19 Screening: PUI COVID-19 COVID-19 Testing Source: [place] Patient History Past Medical History: see triage record Reviewed Nursing Documentation: PMH: Agreed; PSxH: Agreed Nursing Documentation-PMH Hx Hypertension: Yes Hx Cancer: No Hx Gastrointestinal Problems: Yes Hx Neurological Problems: Yes - PARAPLEGIA Hx Paralysis: Yes - B/L LOWER EXTREMITIES Hx Spinal Cord Injury: Yes - T9-T10 Hx Neurologic Surgery: Yes Review of Systems All Other Systems: negative except mentioned in HPI Physical Exam Vital Signs Date Time Temp Pulse Resp B/P (MAP) Pulse Ox O2 Delivery O2 Flow Rate FiO2 01/18/20 17:11 99.1 113 19 127/77 (94) 98 Room Air Sp02 EP Interpretation: reviewed, normal General Appearance: normal inspection, well appearing, no apparent distress, alert, GCS 15 Head: atraumatic ENT: normal ENT inspection, hearing grossly normal, normal voice Neck: normal inspection, full range of motion, supple, no bony tend Respiratory: normal inspection, lungs clear, normal breath sounds, no respiratory distress, no retraction, no wheezing Cardiovascular #1: regular rate, rhythm, no edema Gastrointestinal: normal inspection, normal bowel sounds, non tender, soft, no guarding, no hernia Genitourinary: no CVA tenderness Musculoskeletal: normal inspection, back normal, normal range of motion Neurologic: alert, motor strength/tone normal, bulldozer mechanic III-XII nml as tested, responsive, speech normal, normal inspection Psychiatric: normal inspection, judgement/insight normal, mood/affect normal Skin: other - left leg knee with small open area about 1.5 cm Medical Decision Making Diagnostic Impression: Primary Impression: Contusion of left knee Additional Impressions: Cellulitis Urinary tract infection ER Course Presented for knee pain. Differential diagnosis include was not limited to cell ulitis, abscess, wound infection, hardware infection among others. X-ray imaging and laboratory testing was ordered to patient's complaint. Patient was noted have normal white blood count. He was given medications for pain. He was also given IV antibiotics. Urinalysis shows some evidence of urinary infection. Patient's knee appears to be somewhat bruised and swollen. Appropriate for the patient patient had recent trauma and swelling had been improving. Patient was advised to follow-up with his orthopedic surgeon in the next 1 to 2 days. He was given prescription for medications for pain which he declined. Patient was given morphine for pain in the emergency department. He stated that he was allergic to Toradol however I have given this to him in the past. Patient does not appear to be septic.This medical record is generated with [employer] doubling machine operator software. There may be some doubling machine operator discrepancies related to use of this software. Labs Test 01/18/20 17:25 White Blood Count 10.8 K/UL (4.8-10.8) Red Blood Count 5.26 M/UL (4.70-6.10) Hemoglobin 15.3 G/DL (14.2-18.0) Hematocrit 48.0 % (42.0-52.0) Mean Corpuscular Volume 91 FL (80-99) Mean Corpuscular Hemoglobin 29.1 PG (27.0-31.0) Mean Corpuscular Hemoglobin Concent 31.9 G/DL (32.0-36.0) Red Cell Distribution Width 13.9 % (11.6-14.8) Platelet Count 337 K/UL (150-450) Mean Platelet Volume 7.8 FL (6.5-10.1) Neutrophils (%) (Auto) 75.1 % (45.0-75.0) Lymphocytes (%) (Auto) 16.1 % (20.0-45.0) Monocytes (%) (Auto) 6.2 % (1.0-10.0) Eosinophils (%) (Auto) 1.4 % (0.0-3.0) Basophils (%) (Auto) 1.3 % (0.0-2.0) Urine Color Yellow Urine Appearance Cloudy Urine pH 5 (4.5-8.0) Urine Specific [place] 1.010 (1.005-1.035) Urine Protein Negative (NEGATIVE) Urine Glucose (UA) Negative (NEGATIVE) Urine Ketones Negative (NEGATIVE) Urine Blood 4+ (NEGATIVE) Urine Nitrite Positive (NEGATIVE) Urine Bilirubin Negative (NEGATIVE) Urine Urobilinogen 1 MG/DL (0.0-1.0) Urine Leukocyte Esterase 1+ (NEGATIVE) Urine RBC 5-10 /HPF (0 - 0) Urine WBC 20-30 /HPF (0 - 0) Urine Squamous Epithelial Cells Few /LPF (NONE/OCC) Urine Bacteria Many /HPF (NONE) Sodium Level 136 MMOL/L (136-145) Potassium Level 4.1 MMOL/L (3.5-5.1) Chloride Level 101 MMOL/L (98-107) Carbon Dioxide Level 27 MMOL/L (21-32) Anion Gap 8 mmol/L (5-15) Blood Urea Nitrogen 10 mg/dL (7-18) Creatinine 0.6 MG/DL (0.55-1.30) Estimat Glomerular Filtration Rate > 60 mL/min (>60) Glucose Level 98 MG/DL (74-106) Calcium Level 8.7 MG/DL (8.5-10.1) Total Bilirubin 0.5 MG/DL (0.2-1.0) Aspartate Amino Transf (AST/SGOT) 17 U/L (15-37) Alanine Aminotransferase (ALT/SGPT) 23 U/L (12-78) Alkaline Phosphatase 110 U/L (46-116) Total Protein 8.1 G/DL (6.4-8.2) Albumin 3.3 G/DL (3.4-5.0) Globulin 4.8 g/dL Albumin/Globulin Ratio 0.7 (1.0-2.7) Last Vital Signs Date Time Temp Pulse Resp B/P (MAP) Pulse Ox O2 Delivery O2 Flow Rate FiO2 01/18/20 17:17 99.1 89 19 127/77 98 Room Air Status: improved Disposition: HOME, SELF-CARE Condition: Stable Scripts Hydrocodone Bit/Acetaminophen 5-325* (NORCO 5-325 TABLET*) 1 Each Tablet 1 TAB ORAL Q6H PRN for FOR PAIN, #12 TAB 0 Refills Prov: Jaylon Salamanca MD 01/18/20 Trimethoprim/Sulfamethoxazole 160/800* (BACTRIM DS TABLET*) 1 Each Tablet 1 TAB ORAL Q12H, #14 TAB 0 Refills Prov: Jaylon Salamanca MD 01/18/20 Cephalexin* (KEFLEX*) 500 Mg Capsule 500 MG ORAL EVERY 6 HOURS, #28 CAP Prov: Jaylon Salamanca MD 01/18/20 Referrals: [facility],REFERRING (PCP) Jaylon Salamanca MD Jan 18, 2020 17:25
[2020-01-18] MEDS ORDERED: Morphine Sulfate 4mg/ml Inj (IV USE ONLY) IVP ONE (17:30)
[2020-01-18] MEDS ORDERED: cefTRIAXone 1 GM in NS 55 ML IVPB ONE (17:30)
[2020-01-18 18:15] LABS: APPEARANCE,URINE CLOUDY; BILIRUBIN, URINE NEGATIVE (NEGATIVE); GLUCOSE, URINE (UA) NEGATIVE (NEGATIVE); KETONES,URINE NEGATIVE (NEGATIVE); LEUKOCYTE ESTERASE ,URINE 1+ (NEGATIVE); NITRITE,URINE POSITIVE (NEGATIVE); PH,URINE 5 (4.5-8.0); PROTEIN,URINE NEGATIVE (NEGATIVE); UROBILINOGEN,URINE 1 MG/DL (0.0-1.0)
[2020-01-18 18:18] LABS: COLOR,URINE YELLOW
[2020-01-18 18:19] LABS: BASOPHILS % (AUTO) 1.3 % (0.0-2.0); EOSINOPHILS % (AUTO) 1.4 % (0.0-3.0); HEMOGLOBIN 15.3 G/DL (14.2-18.0); LYMPHOCYTES % (AUTO) 16.1 % (20.0-45.0); MEAN CORPUSCULAR VOLUME 91 FL (80-99); MONOCYTES % (AUTO) 6.2 % (1.0-10.0); NEUTROPHILS % (AUTO) 75.1 % (45.0-75.0); PLATELET COUNT 337 K/UL (150-450); RED BLOOD COUNT 5.26 M/UL (4.70-6.10); RED CELL DISTRIBUTION WIDTH 13.9 % (11.6-14.8); WHITE BLOOD COUNT 10.8 K/UL (4.8-10.8)
[2020-01-18 18:25] LABS: ANION GAP 8 mmol/L (5-15); BLOOD UREA NITROGEN 10 mg/dL (7-18); CALCIUM 8.7 MG/DL (8.5-10.1); CARBON DIOXIDE 27 MMOL/L (21-32); CHLORIDE 101 MMOL/L (98-107); CREATININE 0.6 MG/DL (0.55-1.30); POTASSIUM 4.1 MMOL/L (3.5-5.1); SODIUM 136 MMOL/L (136-145)
[2020-01-18 18:30] LABS: ALANINE AMINOTRANSFERASE 23 U/L (12-78); ALBUMIN 3.3 G/DL (3.4-5.0); ALBUMIN/GLOBULIN RATIO 0.7 (1.0-2.7); ALKALINE PHOSPHATASE 110 U/L (46-116); ASPARTATE AMINO TRANSFERASE 17 U/L (15-37); BILIRUBIN,TOTAL 0.5 MG/DL (0.2-1.0)
[2020-01-18] MEDS ORDERED: Ketorolac 30mg Inj IV ONE (18:30)
--- NOTE | 2020-01-18 18:33 | Diagnostic Imaging Report ---
ADDENDUM - Added by Hu Joya MD on 01/18/2020 6:42 PM (-07:00) This is a correction to the original dictation. The dictation should read as follows: EXAM: XR Left Knee, 3 Views CLINICAL HISTORY: PAIN TECHNIQUE: Three views of the left knee. COMPARISON: 10/21/2019. 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 Mild to moderate osteoarthritic changes. Coarse periosteal reaction medially about the distal femur is again noted, unchanged from the previous study. Probable area of bony infarction distal left femur. No acute fracture. No dislocation. Soft tissues: Soft tissues are unremarkable. There is extensive soft tissue swelling anteriorly about the left knee joint which requires clinical correlation. This finding is new since the previous study. IMPRESSION: 1. There is extensive soft tissue swelling anteriorly about the left knee joint of uncertain etiology. This finding is new since the previous study. The possibility of cellulitis should be considered. 2. Small left knee joint effusion. 3. Osteoarthritic changes. 4. Left tibial intramedullary lorenzo is noted, partially visualized. EXAM: XR Left Knee, 3 Views CLINICAL HISTORY: PAIN TECHNIQUE: Three views of the left knee. COMPARISON: 10/21/2019. 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 Mild to moderate osteoarthritic changes. Course periosteal reaction medially about the distal femur is again noted, unchanged from the previous study. Small left pleural effusion. Probable area of bony infarction distal left femur. No acute fracture. No dislocation. Soft tissues: Soft tissues are unremarkable. There is extensive soft tissue swelling anteriorly about the left knee joint which requires clinical correlation. This finding is new since the previous study.
--- NOTE | 2020-01-18 18:34 | Diagnostic Imaging Report ---
EXAM: XR Left Tibia and Fibula, 2 Views CLINICAL HISTORY: PAIN TECHNIQUE: Frontal and lateral views of the left tibia and fibula. COMPARISON: 10/21/2019. FINDINGS: Bones/joints: Osteopenia. Left tibial intramedullary lorenzo is noted in place. Fracture at the junction of the mid to distal left tibial diaphysis is again noted with incomplete healing. The fibula is unremarkable. Mild to moderate osteoarthritic changes about the left ankle joint. No dislocation. Soft tissues: Soft tissue swelling anterior to the left knee joint of uncertain etiology. No radiopaque foreign body. IMPRESSION: 1. Incomplete healing of the left tibial fracture. 2. Left tibial intramedullary lorenzo is noted in place per 3. Soft tissue swelling anteriorly about the left knee joint of uncertain etiology. Cellulitis should be considered. 4. Osteopenia.
[2020-01-18] MEDS ORDERED: CEPHALEXIN500 MG ORAL (18:46)
[2020-01-18] MEDS ORDERED: NORCO 5-325 TA1 EAC1 ORAL ×2 (18:46→18:47)
[2020-01-18] MEDS ORDERED: BACTRIM DS TAB1 EAC1 ORAL (18:46)
[2020-01-18 18:55] VITALS: BP 127/77
== END 2020-01-18 18:55 | disposition home or self-care (01) ==
LOC: EMR 17:18
DX: S80.02XA Contusion of left knee, initial encounter (principal); N39.0 Urinary tract infection, site not specified; L03.90 Cellulitis, unspecified; I10 Essential (primary) hypertension; G82.20 Paraplegia, unspecified; Z99.3 Dependence on wheelchair
CPT/HCPCS: 36415; 73562; 73590; 80053; 81003; 85025; 87070; 87086; 87181; 87205; 96365; 96375; 99284; J0696; J1885; J2270

== ENCOUNTER 2020-05-16 11:58 | Emergency (ER) | payer MEDICARE ==
[~2020-05-16] VITALS: Ht 165.1 cm; Wt 88.5 kg
[~2020-05-16 11:58] MED LIST changes: +BACTRIM DS TAB1 EAC1 ORAL; +CEPHALEXIN500 MG ORAL; +NORCO 5-325 TA1 EAC1 ORAL
[2020-05-16 12:29] VITALS: BP 154/77
[2020-05-16] MEDS ORDERED: Morphine Sulfate 4mg/ml Inj (IV USE ONLY) IVP ONE (12:45)
[2020-05-16] MEDS ORDERED: Lidocaine 2% Visc 15ml soln ORAL ONE (12:45)
[2020-05-16] MEDS ORDERED: DiphenhydrAMINE 50mg/ml Inj IVP ONE (12:45)
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
[2020-05-16 13:26] LABS: APPEARANCE,URINE SLIGHTLY CLOUDY; BILIRUBIN, URINE 1+ (NEGATIVE); GLUCOSE, URINE (UA) NEGATIVE (NEGATIVE); KETONES,URINE NEGATIVE (NEGATIVE); LEUKOCYTE ESTERASE ,URINE 1+ (NEGATIVE); NITRITE,URINE NEGATIVE (NEGATIVE); PH,URINE 5 (4.5-8.0); PROTEIN,URINE 2+ (NEGATIVE); UROBILINOGEN,URINE 4 MG/DL (0.0-1.0)
[2020-05-16 13:27] LABS: HEMATOCRIT 50.5 % (42.0-52.0); MEAN CORPUSCULAR VOLUME 86 FL (80-99); PLATELET COUNT 389 K/UL (150-450); RED BLOOD COUNT 5.89 M/UL (4.70-6.10); RED CELL DISTRIBUTION WIDTH 15.8 % (11.6-14.8); WHITE BLOOD COUNT 17.2 K/UL (4.8-10.8)
--- NOTE | 2020-05-16 13:27 | Diagnostic Imaging Report ---
Indication: Chest pain Technique: XRAY Chest 1v Comparison: 01/11/2020 Findings: Heart size and mediastinal contours are within normal limits for AP technique. There is no focal airspace consolidation, pneumothorax or pleural effusion. Osseous structures demonstrate no acute abnormality. Surgical material again noted projecting over the lower chest/epigastric region. Impression: No radiographic evidence of acute cardiopulmonary disease.
[2020-05-16 13:37] LABS: ANION GAP 9 mmol/L (5-15); BLOOD UREA NITROGEN 12 mg/dL (7-18); CALCIUM 8.7 MG/DL (8.5-10.1); CARBON DIOXIDE 28 MMOL/L (21-32); CHLORIDE 104 MMOL/L (98-107); CREATININE 0.6 MG/DL (0.55-1.30); POTASSIUM 4.3 MMOL/L (3.5-5.1); SODIUM 141 MMOL/L (136-145)
[2020-05-16 13:43] LABS: COLOR,URINE YELLOW
[2020-05-16 13:48] LABS: ALANINE AMINOTRANSFERASE 112 U/L (12-78); ALBUMIN 3.7 G/DL (3.4-5.0); ALBUMIN/GLOBULIN RATIO 0.8 (1.0-2.7); ALKALINE PHOSPHATASE 98 U/L (46-116); ASPARTATE AMINO TRANSFERASE 118 U/L (15-37); BILIRUBIN,TOTAL 1.1 MG/DL (0.2-1.0)
[2020-05-16 13:49] LABS: BILIRUBIN,DIRECT 0.6 MG/DL (0.0-0.3)
[2020-05-16] MEDS ORDERED: Vancomycin 1 GM in NS 275 ML IVPB ONE (14:15)
[2020-05-16] MEDS ORDERED: Piperacillin/Tazobactam 3.375 GM in NS 110 ML IVPB ONE (14:15)
--- NOTE | 2020-05-16 14:20 | Diagnostic Imaging Report ---
Indication: Abdominal pain Technique: Noncontrast CT of the abdomen and pelvis utilizing automated exposure control. Axial, sagittal and coronal reformats presented. CT dose: Total DLP 71.5 mGycm; CTDI vol 13.8 mGy Comparison: 08/16/2019 Findings: Please note that evaluation of the abdominal and pelvic viscera and vascular structures is limited without the use of intravenous and oral contrast. Within these limitations the following observations are made: Dependent atelectatic changes noted in the lung bases. Partially imaged heart appears normal in size. No pericardial effusion. Multiple metallic density foreign bodies are again seen in the liver, similar to the prior exam. Pneumobilia is again noted, as seen on prior exams. Mild nonspecific distention of the gallbladder. No discrete pericholecystic inflammatory changes appreciated. Noncontrast evaluation of the spleen, adrenal glands and pancreas is unremarkable. There is no urinary tract stone or hydronephrosis. No perinephric stranding or perinephric fluid collection. There is thickening of the wall of the bladder. There is no free intraperitoneal air or fluid. There is no evidence of small bowel obstruction or focal inflammatory stranding within the mesenteric fat. The appendix is normal in caliber and there are no periappendiceal inflammatory changes. Mild/moderate retained stool noted within the colon. There is a moderate-sized fat-containing supraumbilical ventral hernia in the epigastric region which is unchanged compared to the prior exam. Multiple surgical clips noted within the anterior abdomen, similar to the prior exam. Additional small fat-containing ventral hernia is again seen, just above the level of the umbilicus. There is a tiny fat-containing umbilical hernia. Abdominal aorta is normal in caliber. No pathologically enlarged lymphadenopathy. 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 Unchanged compression and likely posttraumatic deformity of the T12 vertebral body with retropulsion of fragments into the canal at this level and some associated metallic densities. Findings are similar to the prior exam. Diffuse atrophy of the musculature below the level of spinal injury is again seen. Bilateral hip joint effusions are again seen, similar to the prior exam. IMPRESSION: Limited exam without intravenous and oral contrast. Within these limitations: * Bladder wall thickening which may be related to under distention versus cystitis. Correlation with urinalysis recommended. * Mild to moderate retained stool in the colon suggesting constipation. * Nonspecific mild distention of the gallbladder without CT evident gallstones or discrete pericholecystic inflammatory changes. If there is right upper quadrant pain or concern for acute cholecystitis consider further evaluation with focused ultrasound of the right upper quadrant. Multiple additional findings as detailed above, overall similar compared to the prior exam. The CT scanner at [facility] is accredited by the [employer] and the scans are performed using protocols designed to limit radiation exposure to as low as reasonably achievable to attain images of sufficient resolution adequate for diagnostic evaluation.
[2020-05-16 14:46] VITALS: BP 111/68
--- NOTE | 2020-05-16 15:12 | NUR ---
pt has an ulcer to his left knee that he has been taking care of. wound is pinkish in the middle with signs of healing skin from inside out. no foul odor or drainage noted. wound was swabbed and sent
--- NOTE | 2020-05-16 15:13 | NUR ---
pt does his own in and out caths, he is a parapeligic
--- NOTE | 2020-05-16 15:28 | NUR ---
pt stated he is in a lot of pain. reported to ERMD
[2020-05-16] MEDS ORDERED: Hydromorphone 0.5mg/0.5ml inj IVP ONE ×2 (15:45→19:15)
--- NOTE | 2020-05-16 16:15 | NUR ---
pt requested a julien, order was given and julien was placed
--- NOTE | 2020-05-16 16:18 | Emergency Room Report ---
Physical Exam Please see above note. Patient signed out to me Paraplegic with complaint of abdominal pain ending up having leukocytosis. Vancomycin and Zosyn begun. Last 24 Hour Vital Signs Date Time Temp Pulse Resp B/P (MAP) Pulse Ox O2 Delivery O2 Flow Rate FiO2 05/16/20 14:46 97.1 92 18 111/68 99 Room Air 05/16/20 12:29 100 18 Room Air 05/16/20 12:29 98.0 100 18 154/77 98 Room Air 05/16/20 12:07 98.2 102 18 143/92 (109) 95 Room Air Sp02 EP Interpretation: reviewed, normal General Appearance: no apparent distress, Chronically Ill Head: normocephalic, atraumatic Eyes: bilateral eye normal inspection, bilateral eye PERRL ENT: other - Wearing a mask Neck: normal inspection, full range of motion, supple Respiratory: lungs clear Cardiovascular #1: regular rate, rhythm Cardiovascular #2: 2+ radial (R) Gastrointestinal: normal bowel sounds, no guarding, no rebound, tenderness - Reported epigastric Genitourinary: no CVA tenderness Musculoskeletal: calf tenderness, other - See skin Neurologic: alert, motor weakness - Bilateral lower extremities, sensory deficit - Lower extremities Psychiatric: mood/affect normal Skin: warm/dry, other - Lesion left anterior knee with ulceration without surrounding erythema Medical Decision Making Diagnostic Impression: Primary Impression: Sepsis Qualified Codes: A41.9 - Sepsis, unspecified organism Additional Impressions: Abdominal pain Qualified Codes: R10.13 - Epigastric pain Leukocytosis Qualified Codes: D72.829 - Elevated white blood cell count, unspecified Elevated lactic acid level ER Course Patient signed out to me with leukocytosis and paraplegia. Discussed with prior physician regarding starting antibiotics of Zosyn and vancomycin. In addition elevated lactic acid. Fluid bolus ordered. Patient perfusing well. No altered mentation. Not tachycardic. No hypotension. Good capillary refill. Sepsis evaluation. Patient complaining about pain. Dilaudid administered. Patient self caths and therefore Vázquez was placed at this time. Discussed with returned case inspector as she wanted the patient discharged. Discussed the need for at least observation to determine source of infection. CT without significant findings (see below). Discussed with Dr. Ricci. Patient was scheduled to have plastic surgery on L knee tomorrow. Contacted MD office to notify of need for hospitalization. Repeat lactate 2.2 after bolus and antibiotics. Pain improved. Prior to transfer patient complained of increased pain. At that time his heart rate increased up to 140. Dilaudid repeated. Heart rate improved. Laboratory Tests Test 05/16/20 13:02 05/16/20 13:15 05/16/20 14:05 05/16/20 16:23 Urine Color Yellow Urine Appearance Slightly cloudy Urine pH 5 (4.5-8.0) Urine Specific [place] 1.020 (1.005-1.035) Urine Protein 2+ (NEGATIVE) H Urine Glucose (UA) Negative (NEGATIVE) Urine Ketones Negative (NEGATIVE) Urine Blood 2+ (NEGATIVE) H Urine Nitrite Negative (NEGATIVE) Urine Bilirubin 1+ (NEGATIVE) H Urine Ictotest Negative (NEGATIVE) Urine Urobilinogen 4 MG/DL (0.0-1.0) H Urine Leukocyte Esterase 1+ (NEGATIVE) H Urine RBC 2-4 /HPF (0 - 0) H Urine WBC 0-2 /HPF (0 - 0) Urine Squamous Epithelial Cells Moderate /LPF (NONE/OCC) H Urine Bacteria Occasional /HPF (NONE) White Blood Count 17.2 K/UL (4.8-10.8) H Red Blood Count 5.89 M/UL (4.70-6.10) Hemoglobin 15.0 G/DL (14.2-18.0) Hematocrit 50.5 % (42.0-52.0) Mean Corpuscular Volume 86 FL (80-99) Mean Corpuscular Hemoglobin 25.4 PG (27.0-31.0) L Mean Corpuscular Hemoglobin Concent 29.6 G/DL (32.0-36.0) L Red Cell Distribution Width 15.8 % (11.6-14.8) H Platelet Count 389 K/UL (150-450) Mean Platelet Volume 7.5 FL (6.5-10.1) Neutrophils (%) (Auto) % (45.0-75.0) Lymphocytes (%) (Auto) % (20.0-45.0) Monocytes (%) (Auto) % (1.0-10.0) Eosinophils (%) (Auto) % (0.0-3.0) Basophils (%) (Auto) % (0.0-2.0) Differential Total Cells Counted 100 Neutrophils % (Manual) 82 % (45-75) H Lymphocytes % (Manual) 14 % (20-45) L Monocytes % (Manual) 4 % (1-10) Eosinophils % (Manual) 0 % (0-3) Basophils % (Manual) 0 % (0-2) Band Neutrophils 0 % (0-8) Platelet Estimate Adequate Platelet Morphology Normal Hypochromasia 1+ Anisocytosis 1+ Sodium Level 141 MMOL/L (136-145) Potassium Level 4.3 MMOL/L (3.5-5.1) Chloride Level 104 MMOL/L (98-107) Carbon Dioxide Level 28 MMOL/L (21-32) Anion Gap 9 mmol/L (5-15) Blood Urea Nitrogen 12 mg/dL (7-18) Creatinine 0.6 MG/DL (0.55-1.30) Estimated Glomerular Filtration Rate > 60 mL/min (>60) Glucose Level 109 MG/DL (74-106) H Calcium Level 8.7 MG/DL (8.5-10.1) Total Bilirubin 1.1 MG/DL (0.2-1.0) H Direct Bilirubin 0.6 MG/DL (0.0-0.3) H Aspartate Amino Transferase (AST) 118 U/L (15-37) H Alanine Aminotransferase (ALT) 112 U/L (12-78) H Alkaline Phosphatase 98 U/L (46-116) Troponin I 0.005 ng/mL (0.000-0.056) Total Protein 8.2 G/DL (6.4-8.2) Albumin 3.7 G/DL (3.4-5.0) Globulin 4.5 g/dL Albumin/Globulin Ratio 0.8 (1.0-2.7) L Lipase 180 U/L (73-393) Lactic Acid Level 3.20 mmol/L (0.4-2.0) H 2.20 mmol/L (0.66-2.22) Rhythm Strip Diag. Results Rhythm: NSR, no PVC's, no ectopy CT/MRI/US Diagnostic Results CT/MRI/US Diagnostic Results : Imaging Test Ordered: Abdomen pelvis Impression * Bladder wall thickening which may be related to under distention versus cystitis. Correlation with urinalysis recommended. * Mild to moderate retained stool in the colon suggesting constipation. * Nonspecific mild distention of the gallbladder without CT evident gallstones or discrete pericholecystic inflammatory changes. If there is right upper quadrant pain or concern for acute cholecystitis consider further evaluation with focused ultrasound of the right upper quadrant. Multiple additional findings as detailed above, overall similar compared to the prior exam. Last Vital Signs Date Time Temp Pulse Resp B/P (MAP) Pulse Ox O2 Delivery O2 Flow Rate FiO2 05/16/20 18:18 98.1 119 18 159/86 98 Room Air Status: improved Disposition: SHORT-TERM HOSP Condition: Serious Referrals: [facility],REFERRING (PCP) Herminio Wren MD May 16, 2020 16:18
[2020-05-16 16:19] VITALS: BP 142/72
--- NOTE | 2020-05-16 16:24 | NUR ---
Second lactic drawn at this time per attending provider
[2020-05-16] MEDS ORDERED: LORazepam Inj 2mg/ml 1ml IV ONE (17:45)
[2020-05-16 18:18] VITALS: BP 159/86
--- NOTE | 2020-05-16 18:37 | NUR ---
Report called and given to Slick RITCHIE at [facility] Ambulance transport ETA [id number]
--- NOTE | 2020-05-16 18:55 | NUR ---
reported off to ems
[2020-05-16] MEDS ORDERED: Hydromorphone 0.5mg/0.5ml inj ONE (19:07)
--- NOTE | 2020-05-16 19:09 | NUR ---
pt's hr rate 140's due to pain, gave pt diluadid ivp
[2020-05-16 22:00] VITALS: BP 159/86
--- NOTE | 2020-05-17 19:17 | Cardiology Report ---
APPROVED REPORT EKG Measurement Heart [id number] <Conclusion> Normal sinus rhythm Normal ECG
== END 2020-05-16 22:00 | disposition short-term general hospital (02) ==
LOC: EMR 13:21
DX: A41.9 Sepsis, unspecified organism (principal); D72.829 Elevated white blood cell count, unspecified; R10.13 Epigastric pain; G82.20 Paraplegia, unspecified; I10 Essential (primary) hypertension
CPT/HCPCS: 36415; 71045; 74176; 80053; 81003; 82248; 83605; 83690; 84484; 85007; 85025; 87040; 93005; 96361; 96365; 96367; 96375; 96376; 99284; J1170; J1200; J2270; J2543; J3370; J7030; J7050